=== PATIENT | female | born 1995 | race Caucasian/White ===

== ENCOUNTER 2019-04-16 22:59 | Emergency (ER) | payer BC, MEDICAID, MEDICARE ==
[~2019-04-16] VITALS: Ht 167.6 cm; Wt 68.0 kg
[~2019-04-16 22:59] MED LIST: ABIL5 PO; BUPR100T4 PO
[2019-04-16] MEDS ORDERED: IBUPROFEN 600MG TABLET PO ONE (23:30)
[2019-04-16] MEDS ORDERED: ONDANSETRON 4MG ODT PO ONE (23:30)
[2019-04-17 01:15] VITALS: BP 120/69
== END 2019-04-17 01:19 | disposition home or self-care (01) ==
LOC: ER 22:59
DX: M54.2 Cervicalgia (principal); R51 Headache; V73.6XXA Passenger on bus injured in collision with car, pick-up truck or van in traffic accident, initial encounter; Y93.89 Activity, other specified; Y92.488 Other paved roadways as the place of occurrence of the external cause
CPT/HCPCS: 72040; 81025; 99283; Q0162

== ENCOUNTER 2019-04-18 22:52 | Emergency (ER) | payer MEDICARE ==
[~2019-04-18] VITALS: Ht 170.2 cm; Wt 97.0 kg
[2019-04-19 01:21] VITALS: BP 109/77
== END 2019-04-19 01:24 | disposition home or self-care (01) ==
LOC: ER 22:52
DX: R07.89 Other chest pain (principal); M54.9 Dorsalgia, unspecified; V73.6XXA Passenger on bus injured in collision with car, pick-up truck or van in traffic accident, initial encounter; Y93.89 Activity, other specified; Y92.488 Other paved roadways as the place of occurrence of the external cause
CPT/HCPCS: 99282

== ENCOUNTER 2019-06-14 19:47 | Emergency (ER) | payer MEDICARE ==
[~2019-06-14] VITALS: Ht 170.2 cm; Wt 97.0 kg
[2019-06-14] MEDS ORDERED: TRAMADOL 50MG TABLET PO ONE ×2 (22:15→23:15)
[2019-06-14 22:42] LABS: CLARITY URINE CLEAR (CLEAR); COLOR URINE YELLOW (YELLOW); KETONES URINE NEGATIVE (NEGATIVE); LEUKOCYTE ESTERASE URINE NEGATIVE (NEGATIVE); NITRITE URINE NEGATIVE (NEGATIVE); OCCULT BLOOD URINE 3+ (NEGATIVE); PH URINE 5.5 (4.5-8.0); PROTEIN URINE NEGATIVE (NEGATIVE); SPECIFIC GRAVITY URINE 1.033 (1.005-1.030)
[2019-06-14 23:39] LABS: HEMATOCRIT 39.1 % (36.0-48.0); HEMOGLOBIN 13.3 g/dL (12.0-16.0); MEAN CORPUSCULAR HEMOGLOBIN 28.5 pg (28.0-32.0); MEAN CORPUSCULAR VOLUME 83.9 fL (81.0-99.0); PLATELET 335 x1000/uL (130-400); RED BLOOD CELL COUNT 4.66 mill/uL (4.2-5.4); RED CELL DISTRIBUTION WIDTH 14.2 % (11.6-14.6)
[2019-06-14 23:44] LABS: CHLORIDE 108 mEq/L (98-107)
[2019-06-15 02:12] VITALS: BP 119/77
== END 2019-06-15 03:40 | disposition home or self-care (01) ==
LOC: ER 19:47
DX: S30.1XXA Contusion of abdominal wall, initial encounter (principal); R31.29 Other microscopic hematuria; M54.9 Dorsalgia, unspecified; Z86.73 Personal history of transient ischemic attack (TIA), and cerebral infarction without residual deficits; Z87.440 Personal history of urinary (tract) infections; Z79.899 Other long term (current) drug therapy; W18.39XA Other fall on same level, initial encounter; Y93.89 Activity, other specified; Y92.89 Other specified places as the place of occurrence of the external cause; Y99.8 Other external cause status
CPT/HCPCS: 36415; 74176; 80053; 81003; 81025; 85027; 99284; Z7610